=== PATIENT | female | born 1985 | race Caucasian/White ===

== ENCOUNTER 2017-08-26 11:37 | Emergency (ER) | payer OTHER ==
[~2017-08-26] VITALS: Ht 172.7 cm; Wt 120.0 kg
[~2017-08-26 11:37] MED LIST: DIFL150T PO; Z.0.NO CURRENT MEDS
[2017-08-26 11:38] VITALS: BP 175/102; PULSE 79; RESP 18; TEMP 98.7; O2SAT 99
[2017-08-26] MEDS ORDERED: CLAR10CA3 PO (13:21)
[2017-08-26 13:24] VITALS: BP 152/90; PULSE 74; RESP 18; TEMP 98.2; O2SAT 100
--- NOTE | 2017-08-26 13:33 | PD ---
HPI Chief Complaint: Vp Patient Problem/Complaint Time Seen by Provider: 13:24 Travel History International Travel<30 days: No Contact w/Intl Traveler<30days: No Traveled to known affect area: No History of Present Illness HPI 32yo F presents to the ED with 2 complaints. States she needs to be retreated for STI because she has been having yellow vaginal discharge for a few days and has had sexual intercourse with 2 partners. Last treated in june and had intercourse since then. Also with complaint of throat pain today. Said her child's daycare had outbreak for strep so she was concern. Denies any fever, drooling, decreased PO intake, chest pain, sob, n/v, abdominal pain. PFSH Past Medical History Medical History: Denies Significant Hx Tetanus Vaccination: Unknown Influenza Vaccination: No ?: Not LMP: 08/24/17 Past Surgical History Section: Yes Cholecystectomy: Yes Social History Alcohol Use: Yes (OCC) Tobacco Use: Yes Substance Use: No Allergies-Medications (Allergen,Severity, Reaction): Coded Allergies: No Known Allergies (Unverified , 08/26/17) Reported Meds & Prescriptions Reported Meds & Active Scripts Active Reported Claritin (Loratadine) 10 Mg Cap 10 Mg PO DAILY Review of Systems Except as stated in HPI: all other systems reviewed are Neg Physical Exam Narrative GENERAL: 32yo F not in distress. SKIN: Focused skin assessment warm/dry. HEAD: Atraumatic. Normocephalic. EYES: Pupils equal and round. No scleral icterus. No injection or drainage. ENT: Throat: Clear. Uvula midline. No exudate. NECK:No cervical lymphadenopathy. CARDIOVASCULAR: Regular rate and rhythm. No murmur appreciated. RESPIRATORY: No accessory muscle use. Clear to auscultation. Breath sounds equal bilaterally. GASTROINTESTINAL: Abdomen soft, non-tender, nondistended. PELVIC: White vaginal discharge. No CMT or adnexal tenderness bilaterally. MUSCULOSKELETAL: No obvious deformities. No clubbing. No cyanosis. No edema. NEUROLOGICAL: Awake and alert. No obvious cranial nerve deficits. Motor grossly within normal limits. Normal speech. PSYCHIATRIC: Appropriate mood and affect; insight and judgment normal. Data Data Last Documented VS Vital Signs Date Time Temp Pulse Resp B/P (MAP) Pulse Ox O2 Delivery O2 Flow Rate FiO2 08/26/17 15:25 08/26/17 13:24 98.2 74 18 100 Room Air Orders Orders Group A Rapid Strep Screen (08/26/17 13:29) Gc And Chlamydia Pcr (08/26/17 13:29) Wet Prep Profile (08/26/17 13:29) Urinalysis - C+S If Indicated (08/26/17 13:29) Ed Urine Pregnancytest Poc (08/26/17 13:29) Azithromycin Powd Pack (Zithromax Powd P (08/26/17 14:30) Ceftriaxone Inj (Rocephin Inj) (08/26/17 14:30) Lidocaine 1% Inj (50 Ml) (Xylocaine 1% I (08/26/17 14:30) Strep Culture (Group A) (08/26/17 14:00) Metronidazole (Flagyl) (08/26/17 15:15) Ed Discharge Order (08/26/17 15:11) Labs Laboratory Tests Test 08/26/17 14:00 08/26/17 14:08 Urine Color LIGHT-YELLOW Urine Turbidity CLEAR Urine pH 7.5 Urine Specific [place] 1.010 Urine Protein NEG mg/dL Urine Glucose (UA) NEG mg/dL Urine Ketones NEG mg/dL Urine Occult Blood NEG Urine Nitrite NEG Urine Bilirubin NEG Urine Urobilinogen LESS THAN 2.0 MG/DL Urine Leukocyte Esterase NEG Urine RBC LESS THAN 1 /hpf Urine WBC LESS THAN 1 /hpf Urine Squamous Epithelial Cells <1 /hpf Urine Mucus FEW /lpf Microscopic Urinalysis Comment CULT NOT INDICATED Clue Cells (Wet Prep) NONE SEEN Vaginal Trichomonas (Wet Prep) PRESENT Vaginal Yeast (Wet Prep) NONE SEEN Chlamydia trachomatis DNA (PCR) NOT DETECTED Neisseria gonorrhoeae DNA (PCR) NOT DETECTED MDM Medical Decision Making Medical Screen Exam Complete: Yes Emergency Medical Condition: Yes Differential Diagnosis Bacterial vaginosis vs. vaginal candidiasis vs. trichomoniasis vs. gonorrhea vs. chlamydia vs. strep throat Narrative Course 32yo well appearing female here with 2 separate complaints. Pt is mainly concerning about STI as her partner went to get treated today. Pt empirically given azithromycin and ceftriaxone. Rapid strep negative. UA negative. Wet prep positive for trichomonas. Pt prefers the 2gm metronidazole so given that in the ED. Return precautions given. Diagnosis Primary Impression: Vaginal trichomoniasis Patient Instructions: General Instructions Departure Forms: Tests/Procedures Additional Instructions: Please follow up with your blind hooker in 3-7 days. Return to the ED if symptoms worsen. Refrain from sexual intercourse for 2 weeks, until your partner is treated. Med/Other Pt SpecificInfo: No Change to Meds Disposition: 01 DISCHARGE HOME Condition: Stable Karime Gray DO Aug 26, 2017 13:33
[2017-08-26] MEDS ORDERED: cefTRIAXone 250 MG VIAL IM ONE (14:30)
[2017-08-26] MEDS ORDERED: LIDOCAINE HCL 1% 50 ML VIAL IM ONE (14:30)
[2017-08-26] MEDS ORDERED: AZITHROMYCIN PWD FOR SUSP 1 GM PACKET PO ONE (14:30)
[2017-08-26 14:39] LABS: BLOOD, URINE NEG (NEG); COMMENT (UR) CULT NOT INDICATED; CULTURE IF INDICATED CULT NOT INDICATED; GLUCOSE,URINE NEG (NEG); KETONE, URINE NEG (NEG); MUCUS URINE FEW /lpf (OCC); NITRITE,URINE NEG (NEG); PH, URINE 7.5 (5.0-8.5); SQUAMOUS EPITHELIAL CELL URINE <1 /hpf (0-5); URINE COLOR LIGHT-YELLOW (YELLW/STRAW)
[2017-08-26] MEDS ORDERED: metroNIDAZOLE 500 MG TAB PO ONE (15:15)
[2017-08-26 17:09] LABS: CHLAMYDIA PCR NOT DETECTED (NOT DETECT); NEISSERIA PCR NOT DETECTED (NOT DETECT)
== END 2017-08-26 15:25 | disposition home or self-care (01) ==
LOC: NEPD 11:37
DX: A59.01 Trichomonal vulvovaginitis (principal); Z72.0 Tobacco use
CPT/HCPCS: 81001; 84703; 87081; 87210; 87491; 87591; 87880; 96372; 99284; J0696